=== PATIENT | male | born 1960 | race Caucasian/White ===

== ENCOUNTER 2019-03-24 08:40 | Emergency (ER) | payer SELFPAY ==
[2019-02-14 03:32] VITALS: BP 160/95
[2019-03-24] MEDS ORDERED: hydrALAZINE HCL 20 MG/1 ML ONE (08:46)
[2019-03-24] MEDS ORDERED: cloNIDine HCL 0.1 MG TABLET PO ONE (08:46)
[2019-04-11 12:49] LABS: eGFR (Non-African) > 60
[2019-04-11 12:50] LABS: BASOPHILS % 0.4 % (0.0-1.5); NEUTROPHILS # 5.8 # k/uL (1.4-7.7)
[2019-04-11 12:56] LABS: APPEARANCE,URINE CLOUDY (CLEAR); COLOR,URINE YELLOW (YELLOW); OCCULT BLOOD,URINE NEGATIVE (NEGATIVE); UROBILINOGEN URINE 0.2 Eu (0.2-1.0)
--- NOTE | 2019-05-05 09:42 | Diagnostic Imaging Report ---
ERICA HENRIQUEZ [facility] [address] [facility] [address] [place] [address]. [id number] Report Submission Date: Mar 24, 2019 9:36:19 AM CDT Patient Study Name: DORINA HELMS Date: Mar 24, 2019 8:57:42 AM CDT Modality Type: US\SR Gender: M Description: US RUQ LIMITED : 60 Institution: [facility] Physician: ERICA HENRIQUEZ Right upper quadrant ultrasound History: History of alcoholism. Right upper quadrant pain Transverse and longitudinal images were obtained through the right upper quadrant. The liver is diffusely abnormal. Multiple echogenic masses are present scattered throughout the entire liver. The liver is also enlarged but cannot be accurately measured. The right kidney measures 10.8 cm in length and demonstrates no hydronephrosis or evident mass. The gallbladder wall is abnormally thickened with portions of the wall measuring up to nearly 10 mm. In the setting a markedly abnormal liver, this gallbladder wall thickening is nonspecific. Gallbladder wall thickening can be seen in the setting of acute and chronic cholecystitis but can also be seen in the setting of hepatitis and low protein states. No gallstones are noted. The common bile duct is only partly visualized but the visualized portion is normal in caliber measuring 4.4 mm. The pancreas cannot be visualized. Impression: The liver is enlarged. The entire liver is abnormal. Multiple echogenic masses are present and scattered throughout the liver. In the setting alcoholism, these findings could indicate a diffuse hepatoma. However, diffuse metastatic disease of the liver would not be excluded. Either dedicated liver CT or liver MRI would be recommended for further assessment. Nonvisualization of the pancreas. Abnormally thickened gallbladder wall as described. Electronically signed on Mar 24, 2019 9:36:19 AM CDT by: Carmen ABDALLA
--- NOTE | 2019-05-14 08:48 | Diagnostic Imaging Report ---
ERICA HENRIQUEZ [facility] [address] [facility].[address] [id number] Report Submission Date: Mar 24, 2019 12:07:33 PM CDT Patient Study Name: DORINA HELMS Date: Mar 24, 2019 10:45:30 AM CDT Modality Type: CT\SR Gender: M Description: CT A/P W/ CONTRAST : 60 Institution: [facility] Physician: ERICA HENRIQUEZ CT abdomen and pelvis with contrast History: Abnormal ultrasound Technique: Helically acquired images were obtained from the hemidiaphragms through the pelvic floor following IV contrast. Findings: Essentially the entire liver is abnormal, occupied by diffuse, large and predominantly peripherally enhancing masses. The liver is markedly enlarged measuring at least 30 x 30 cm. These findings are strongly concerning for malignancy, either diffuse and extensive metastatic disease or perhaps a diffuse hepatoma. These findings would be readily amenable to either CT or ultrasound- guided biopsy. The spleen, adrenal glands and pancreas appear unremarkable. There are probable small bilateral calyceal stones but the kidneys are otherwise unremarkable without hydronephrosis. There is a retro aortic left renal vein. There is aortoiliac atherosclerosis without aneurysm. There is a small to moderate amount of ascites adjacent to the liver and tracking into the right pericolic gutter and right pelvis. There is diverticulosis throughout the descending and sigmoid colon without evidence for active diverticulitis. Layering calcified radiodensities are present posteriorly within the bladder, likely layering stones or layering milk of calcium. No additional bladder abnormalities are noted. The seminal vesicles and prostate gland are unremarkable. There is a small hiatal hernia. Aside from a linear focus of scarring versus atelectasis at the superior segment right lower lobe and atelectasis along the right hemidiaphragm, the visualized lung bases are clear. There is mild multilevel disc narrowing with multilevel facet arthropathy. No suspicious osseous abnormalities are noted. Impression: Essentially the entire liver is abnormal. The liver is markedly abnormally enlarged and there are masses occupying essentially the entire liver. The vast majority of these masses demonstrate predominantly peripheral enhancement. These findings are strongly concerning for malignancy, either metastatic disease or perhaps a diffuse hepatoma. These findings would be readily amenable to either CT or ultrasound-guided biopsy. Small to moderate amount of ascites adjacent to the liver, tracking into the right pericolic gutter and extending into the pelvis. Normal appendix. Diverticulosis diffusely of the descending and sigmoid colon. Probable small bilateral renal stones. Small hiatal hernia. Atelectasis adjacent to the right hemidiaphragm with either atelectasis or scarring at the superior segment right lower lobe. Calcification posteriorly within the bladder as described. Degenerative disc disease and degenerative joint disease throughout the lumbar spine. Electronically signed on Mar 24, 2019 12:07:33 PM CDT by: Carmen ABDALLA
== END 2019-03-24 14:44 ==
LOC: ED 08:40
DX: K76.89 Other specified diseases of liver (principal); N20.0 Calculus of kidney; K44.9 Diaphragmatic hernia without obstruction or gangrene; K57.00 Diverticulitis of small intestine with perforation and abscess without bleeding
CPT/HCPCS: 36415; 74160; 76705; 80053; 81002; 83690; 85025; 85610; 85730; 86704; 86706; 86709; 87340; 96374; 99285; J0360; Q9967; S1016